=== PATIENT | female | born 1955 | race Two or more races ===

== ENCOUNTER → 2024-08-29 | Outpatient (CLI) | payer OTHER, MEDICAID, SELFPAY ==
--- NOTE | 2024-08-29 16:01 | XR_ITS ---
Examination: Bilateral hands, 6 views. Technique: AP, Oblique, Lateral each hand total 6 views Date and time of exam: August 29, 2024 1403 hours INDICATIONS: Bilateral hand pain beginning 2 weeks ago. FINDINGS: Moderate osteopenia Fusion of the distal interphalangeal joint right second digit Fusion proximal interphalangeal joint left second digit Mild to moderate osteoarthritis distal interphalangeal joints No erosive arthritis Mild osteoarthritis first carpometacarpal joints No cortical bone destruction Impression: Osteoarthritis as above
[2024-08-29 17:43] LABS: C-Reactive Protein < 0.4 mg/dL (0.0-0.9)
[2024-08-29 17:46] LABS: Sed Rate (ESR) 23 mm/hr (0-30)
[2024-08-30 05:25] LABS: RA Screen Negative (Negative)
[2024-09-10 07:30] LABS: ANA Screen, IFA POSITIVE (NEGATIVE); CCP Antibody (IgG)* <16 Units
== END | disposition home or self-care (01) ==
LOC: COPL 15:57
PROVIDERS: Referring Provider Internal Medicine; Visit Provider Radiology Diagnostic Radiology
DX: M19.042 Primary osteoarthritis, left hand (principal); M19.041 Primary osteoarthritis, right hand; M25.50 Pain in unspecified joint
CPT/HCPCS: 36415; 73130; 85652; 86038; 86039; 86140; 86200; 86430

== ENCOUNTER → 2024-09-12 | Outpatient (CLI) | payer OTHER, MEDICAID, SELFPAY ==
--- NOTE | 2024-09-12 08:00 | XR_ITS ---
Examination: MRI cervical spine without intravenous contrast Date and time of exam: September 12, 2024 0908 hours INDICATIONS: Neck pain beginning 3 months ago radiating down the arms of the hands with numbness in the fingers Technique: Multiple axial and sagittal sections of the cervical spine to been obtained. T2 weighted sagittal sections, TR 3, 270, TE 117 T1-weighted sagittal sections, TR 500, TE 11 T1-weighted axial sections, TR 607, TE 12, axial sections TR 18, TE 27 and T2 weighted transverse sections, TR 3920, TE 122. Findings: Adequate alignment cervical vertebral bodies No cervical fracture Intact odontoid Early degenerative disc disease C6-C7 Intact odontoid Diffuse disc desiccation No localized enlargement cervical cord C2-C3 no disc protrusion C3-C4 no disc protrusion C4-C5 3 mm central cervical disc protrusion C5-C6 5 mm central disc protrusion impinging upon the cervical cord and producing significant overall spinal stenosis including moderate bilateral neural foraminal stenosis C6-C7 pronounced left uncinate process hypertrophy indenting the ventral margin cervical cord with advanced left moderate right neural foraminal stenosis C7-T1 no disc protrusion IMPRESSION: Advanced cervical spinal stenosis C5-C6, C6-C7 as above
== END | disposition home or self-care (01) ==
LOC: SMRI 07:44
PROVIDERS: PCP Internal Medicine; Referring Provider Internal Medicine; Visit Provider Internal Medicine
DX: M48.02 Spinal stenosis, cervical region (principal)
CPT/HCPCS: 72141

== ENCOUNTER → 2025-02-01 | Outpatient (CLI) | payer OTHER, MEDICAID, SELFPAY ==
--- NOTE | 2025-02-01 14:15 | XR_ITS ---
Examination: Diagnostic digital mammography, unilateral, left Computer aided detection 3-D breast Tomosynthesis, unilateral Date and time of exam: February 01, 2025 1359 hours INDICATIONS: Mammogram April 16, 2024 BI-RADS 3 probably benign glandular tissue outer left breast Technique: Nonmagnified MLO, CC views of the left breast have been obtained, reconstructed from 3-D Tomosynthesis images. R2 computer aided detection program utilized for evaluation of suspicious masses and/or abnormal calcifications. 3-D Tomosynthesis images obtained. Findings: The breast is heterogeneously dense, which may obscure small masses 14 mm focal asymmetry 6:00 position left breast Impression: BI-RADS Category 0: Incomplete: Need additional imaging evaluation 14 mm focal asymmetry 6:00 position left breast, recommend follow-up spot tomographic views of this asymmetry as well as left breast sonography to complete the workup
== END | disposition home or self-care (01) ==
LOC: CDIM 13:50
PROVIDERS: Referring Provider Internal Medicine; Visit Provider Internal Medicine
DX: R92.8 Other abnormal and inconclusive findings on diagnostic imaging of breast (principal); N64.89 Other specified disorders of breast
CPT/HCPCS: 77061; 77065; G0279

== ENCOUNTER → 2025-06-18 | Outpatient (CLI) | payer OTHER, MEDICAID, SELFPAY ==
--- NOTE | 2025-06-18 08:45 | XR_ITS ---
Examination: Diagnostic digital mammography, unilateral, left Computer aided detection 3-D breast Tomosynthesis, unilateral Date and time of exam: June 18, 2025 0844 hours, comparison February 01, 2025 INDICATIONS: Mammogram February 01, 2025 14 mm focal asymmetry 6:00 position left breast Technique: Nonmagnified MLO, CC views of the left breast have been obtained, reconstructed from 3-D Tomosynthesis images. R2 computer aided detection program utilized for evaluation of suspicious masses and/or abnormal calcifications. 3-D Tomosynthesis images obtained. Findings: The breast is heterogeneously dense, which may obscure small masses Nodular asymmetry is confirmed in the 6:00 position left breast, 14 mm Impression: BI-RADS category 0: Incomplete: Need additional imaging evaluation Left breast sonography follow-up is needed to assess the 6:00 nodule
== END | disposition home or self-care (01) ==
LOC: CDIM 08:38
PROVIDERS: PCP Internal Medicine; Referring Provider Internal Medicine; Visit Provider Internal Medicine
DX: R92.8 Other abnormal and inconclusive findings on diagnostic imaging of breast (principal); N63.25 Unspecified lump in the left breast, overlapping quadrants
CPT/HCPCS: 77061; 77065; G0279